=== PATIENT | female | born 1945 | race Caucasian/White ===

== ENCOUNTER → 2024-10-31 | Outpatient (CLI) | payer MEDICARE, MEDICAID, SELFPAY | END | disposition home or self-care (01) | PROVIDERS: PCP Family Medicine; Referring Provider Nurse Practitioner Family; Visit Provider Nurse Practitioner Family | DX: N39.0 Urinary tract infection, site not specified (principal) | CPT/HCPCS: 87086 ==

== ENCOUNTER 2025-06-29 03:23 | Emergency (ER) | payer OTHER, MEDICAID, SELFPAY ==
[2025-06-29 03:26] VITALS: BP 167/79; PULSE 86; RESP 18; TEMP 36.6; O2SAT 99
[2025-06-29 03:27] VITALS: BMI 21.5
--- NOTE | 2025-06-29 03:45 | PD.EDBACK ---
ED Back Injury Pain RME/HPI General Chief Complaint: Back Pain/Injury Stated Complaint: L MID BACK PAIN Time Seen by Provider: 06/29/25 03:56 Arrival date/time: 06/29/25 03:23 RME / HPI RME / HPI Narrative: See [facility] for Dr. Nova's HPI documentation. Related Data Previous Rx's ?Medication ?Instructions ?Recorded Hydrocodone/Acetaminophen * (NORCO 1 tab PO Q4H PRN PAIN #20 tabs 10/30/15 5/325 *) Phenazopyridine * (PYRIDIUM *) 100 mg PO TIDPC #9 tabs 10/30/15 Allergies Allergy/AdvReac Type Severity Reaction Status Date / Time Sulfa (Sulfonamide Allergy Intermediate Rash,MAKES Unverified 06/29/25 04:12 Antibiotics) SICK,THROAT SWELLS Review of Systems Review of Systems Systems Reviewed: All systems reviewed, normal except as documented Past Medical History Social History SMOKING STATUS: Never smoker ED Exam Narrative Physical exam: See [facility] for Dr. Nova's physical exam documentation. Course Quality Measures none Orders Category Date Time Status Saline [Insert IV] NOW Care 06/29/25 03:57 Active Straight [In and Out Catheter] X1 Care 06/29/25 03:[address] abdomen pelvis wo con Stat Exams 06/29/25 03:58 Ordered Bilirubin,Direct Stat Lab 06/29/25 03:59 Ordered CBC Stat Lab 06/29/25 03:59 Ordered CMP [Comprehensive Metabolic Panel] Stat Lab 06/29/25 03:59 Ordered Lipase Stat Lab 06/29/25 03:59 Ordered Magnesium Stat Lab 06/29/25 03:59 Ordered Urinalysis, C/S if Indicated Stat Lab 06/29/25 04:46 Received Morphine* Inj Med 06/29/25 03:57 Discontinued 2 mg IV X1 ONE Ondansetron Inj [Zofran Inj] Med 06/29/25 03:57 Discontinued 4 mg IVP X1 ONE Sodium Chloride 0.9% 1000 ml [Ns] 1,000 ml Med 06/29/25 03:57 Discontinued IV 999 mls/hr Vital Signs Vital signs: Vital Signs Temperature 97.8 F 06/29/25 03:26 Pulse Rate 86 06/29/25 03:26 Respiratory Rate 18 06/29/25 03:26 Blood Pressure 167/79 H 06/29/25 03:26 Pulse Oximetry (%) 99 06/29/25 03:26 Oxygen Delivery Method Room Air 06/29/25 03:26 Back Pain / Injury MDM Narrative MDM Narrative:: This section includes all my notes and documentations, including HPI, PE, and ED course. Daryl Nova MD HPI: 79yo female here with left flank pain for the last several hours. Patient was diagnosed with UTI did the before yesterday. Had several days of dysuria symptoms. Has been taking Cipro with no relief. No fever or chills. Has nausea. No vomiting. No other complaints. ROS: All negative except as documented in HPI. Physical Exam: General: Alert and oriented. Appears uncomfortable. Eyes: Conjunctivae and lids clear. ENT: No nasal congestion. Neck: Supple. Heart: RRR. Lungs: No respiratory distress. Good air movement. No rhonchi, wheezing, rales. Abdomen: Soft with no tenderness. Normal bowel sounds. No distension. No rebound or guarding. Back: Equivocal left CVA tenderness. Skin: Warm and dry. Neuro: Alert and oriented X 3. I ordered IV fluid, Zofran 4 mg IV, morphine 2 mg IV, and diagnostic tests. At 6 AM on 06/29/2025, the care of the patient was transferred to Dr. Baez. Daryl Nova MD Patient data External records reviewed:: [facility] previous records (Per chart review, patient has no previous ED visits or admissions to this facility.) Clinical information provided by:: patient Social determinants that could affect healthcare access:: none Patient has the following chronic illnesses:: none How is presenting disease/condition affected by chronic disease/condition?: no chronic disease Evaluation data The following diagnostics were reviewed and interpreted by me:: lab results and radiology exam(s) Lab and/or radiology exams considered but not ordered:: none Interpretation Summary: Complete diagnostic tests are pending. Medications / Prescriptions Medications or Prescriptions considered but not ordered:: none Medication administrations:: Medication Administration History Discontinued Medications Sodium Chloride (Ns) 1,000 mls @ 999 mls/hr IV .Q1H1M ONE Stop: 06/29/25 04:57 Last Admin: 06/29/25 04:14 Dose: 999 mls/hr Documented By: ALVIN Morphine Sulfate (Morphine Sulf Inj 4 Mg/Ml Vial) 2 mg IV X1 ONE Stop: 06/29/25 03:58 Last Admin: 06/29/25 04:13 Dose: 2 mg Documented By: ALVIN Ondansetron HCl (Ondansetron Inj 2 Mg/Ml Inj 2 Ml) 4 mg IVP X1 ONE; Protocol Stop: 06/29/25 03:58 Last Admin: 06/29/25 04:13 Dose: 4 mg Documented By: ALVIN I ordered IV fluid, Zofran 4 mg IV, morphine 2 mg IV. Consultations Consultation(s) initiated? (list below): No Diagnosis Differential diagnosis back pain/injury: lumbar radiculopathy, sciatica, strain of lumbar region, renal colic and pyelonephritis Most likely diagnosis given after review of the tests above:: Complete diagnostic tests are pending. Admission Indicated Admission indicated?: not indicated Explain why admission is indicated or not indicated:: Complete diagnostic tests are pending. Admission Request Was there a request for admission?: No Disposition Plan Disposition Plan: other (specify) (Signed out to Dr. Baez at 6 AM.) Discharge Plan Prescriptions/Referrals Prescriptions/Med Rec: No Action Hydrocodone/Acetaminophen * (NORCO 5/325 *) 1 TAB tablet 1 tab PO Q4H PRN (Reason: PAIN) Qty: 20 0RF Phenazopyridine * (PYRIDIUM *) 100 MG tablet 100 mg PO TIDPC Qty: 9 0RF Problem List Clinical Impression: Left flank pain Patient/Caregiver Discharge Instructions Print Language: Mohawk
--- NOTE | 2025-06-29 03:58 | XR_ITS ---
Examination: CT abdomen and pelvis without contrast. Coronal 3-D reconstructions. Sagittal 2-D reconstructions. Date and time of exam: June 29, 2025, 0457 hours, comparison January 21, 2013 INDICATIONS: Mid abdominal pain left flank pain beginning today CTDI: vol (mGy): 5.27 DLP: (mGycm): 260 Technique: Axial images of the abdomen have been obtained, 3 mm slice thickness Intravenous contrast material has not been administered. Low dose protocols were performed. One or more of the following dose reduction techniques were used; automated exposure control, adjustment of the mA and/or KV according to patient size, use of iterative reconstruction technique. Findings: Multiple liver cysts No gallstones Spleen is not enlarged No pancreatic or adrenal mass. No renal or ureteral calculi, no hydronephrosis Aorta normal size Abundant stool in the right colon Normal appendix No bowel obstruction Multiple calcified areas of uterine fibroid degeneration No bladder mass or bladder calculi Grade 1 anterolisthesis L4 on L5 IMPRESSION: No renal or ureteral calculi, no hydronephrosis No bladder mass or bladder calculi Normal appendix
[2025-06-29] MEDS: ONDANSETRON INJ 2 MG/ML INJ 2 ML 4 MG IVP (04:13)
[2025-06-29] MEDS: MORPHINE SULF INJ 4 MG/ML VIAL 2 MG IV (04:13)
[2025-06-29] MEDS: SODIUM CHLORIDE 0.9% 1000 ML 1,000 ML 999 ML IV (04:14)
[2025-06-29 04:51] LABS: Collection Type, Urine Clean Catch; Squamous Epithelial Cell,Urine 0 /hpf (0-5)
[2025-06-29 04:54] LABS: Bilirubin,Urine Negative (Negative); Blood,Urine Negative (Negative); Clarity,Urine Clear (Clear/Hazy); Color,Urine Colorless (Lt Yel-Yel); Culture Indicated,Urine Not Indicated; Glucose, Urine Negative (Negative); Ketones,Urine Negative (Negative); Leukocyte Esterase,Urine Negative (Negative); Nitrite,Urine Negative (Negative); PH,Urine 6.0 (5.0-7.0); Protein,Urine Negative (Neg - Trace); RBC,Urine 2 /hpf (0-3); Specific Gravity,Urine 1.011 (1.001-1.035); Urobilinogen,Urine Negative mg/dL (0.0-1.0); WBC,Urine 1 /hpf (0-5)
[2025-06-29 05:12] LABS: Basophils # (Auto) 0.1 Thou/mm3 (0.0-0.2); Basophils % (Auto) 1 % (0-2.5); Eosinophils # (Auto) 0.3 Thou/mm3 (0.0-0.5); Eosinophils % (Auto) 6 % (0-10); Hematocrit 39.8 % (36.0-46.0); Hemoglobin 12.6 g/dL (12.0-16.0); Immature Granulocytes Auto 0.01 Thou/mm3 (0.00-0.00); Lymphocytes # (Auto) 1.4 Thou/mm3 (1.0-4.8); Lymphocytes % (Auto) 27 % (10-50); Mean Corpuscular HGB Conc 31.7 g/dl (31.0-37.0); Mean Corpuscular Hemoglobin 28.5 pg (25.0-35.0); Mean Corpuscular Volume 90 fL (80-100); Monocytes # (Auto) 0.5 Thou/mm3 (0.0-0.8); Monocytes % (Auto) 10 % (0-12); Neutrophils # (Auto) 2.8 Thou/mm3 (1.8-7.7); Neutrophils % (Auto) 55 % (37-80); Nucleated Red Blood Cell # 0.00 Thou/mm3 (0.00-0.00); Nucleated Red Blood Cell % 0 /100 WBC (0); Platelet Count 210 Thou/mm3 (140-440); RDW Standard Deviation 43.5 fL (36.4-46.3); Red Blood Count 4.42 Miln/mm3 (4.00-5.20); White Blood Count 5.1 Thou/mm3 (3.6-11.0)
[2025-06-29 05:29] LABS: Alanine Aminotransferase 11 U/L (10-49); Albumin, Serum 4.2 gm/dL (3.4-4.8); Albumin/Globulin Ratio 2.3 (1.2-2.2); Alkaline Phosphatase 84 U/L (46-116); Anion Gap 9 (7-16); Aspartate Amino Transferase 25 U/L (0-34); BUN/Creatinine Ratio 11 Ratio (12-20); Bilirubin,Direct 0.2 mg/dL (0.0-0.3); Bilirubin,Total 0.6 mg/dL (0.3-1.2); Blood Urea Nitrogen 8 mg/dL (9-23); Calcium 8.7 mg/dL (8.3-10.6); Calcium (Corrected) 8.7 mg/dL (8.5-10.1); Carbon Dioxide 21.7 mMol/L (20.0-31.0); Chloride 110 mMol/L (98-107); Creatinine (Component) 0.7 mg/dL (0.6-1.3); Estimated Creatinine Clearance 51.5 mL/min (>60); Globulin 1.8 gm/dL (2.3-3.5); Glucose 89 mg/dL (74-106); Lipase 48 U/L (12-53); Magnesium 1.7 mg/dL (1.6-2.6); Osmolality,Calculated 278 (275-295); Potassium 4.7 mMol/L (3.4-5.1); Sodium 141 mMol/L (136-145); Total Protein 6.0 gm/dL (5.7-8.2); eGFR > 60 See Note
--- NOTE | 2025-06-29 05:51 | PRELIM_ITS ---
CT scan of the abdomen and pelvis without intravenous contrast (axial sections with sagittal and coronal reformats) June 29, 2025 0457 hours Clinical History: Left flank pain Comparison: No prior study is available for comparison. Findings: The lung bases are clear. There are multiple cysts in the liver, the largest measuring 1 cm in the right lobe of the liver. Extrarenal pelves are seen bilaterally. The gallbladder, pancreas, spleen and adrenals are unremarkable on this noncontrast study. No evidence of bowel obstruction. A moderate amount of fecal material is present in the colon. The appendix is within normal limits (caronal images 37- 57/131). There is no mesenteric or retroperitoneal adenopathy. The urinary bladder is unremarkable. There are multiple calcified uterine fibroids, the largest measuring 1 cm. There is no free fluid or free air. The osseous structures are unremarkable. Impression: No evidence of renal/ureteric calculus or hydroureteronephrosis. Other findings as described above. Report Electronically Signed By: Teresa Sifuentes 06/29/2025 5:51:08 AM [EST]
[2025-06-29 06:24] VITALS: BP 101/59; PULSE 65; RESP 18; TEMP 36.6; O2SAT 95
--- NOTE | 2025-06-29 07:10 | EDNOTE_ITS ---
Emergency Room Addendum Addendum Narrative: 0600: Care assumed from Dr. Nova, the previous shift emergency physician. Past medical, surgical, social and family history reviewed. Vitals and home medications reviewed. I will assume the care of the patient at this time, pending labs, imaging, and final disposition. Please refer to the emergency department record for history and examination from initial visit.?The following addendum documentation note is intended to reflect any pending information, findings, or radiology results not included in the patient?s initial chart. I reviewed labs and imaging. CT abdomen pelvis wo contrast with no acute findings. CBC and CMP with no acute findings. UA negative for infection. Patient remains clinically stable throughout the emergency department visit. We reviewed all the results, analysis, and treatment plans. Patient is amenable to discharge. Strict return precautions were outlined. Diagnosis: Left flank pain RADIOLOGY ____ Ordering Physician: Daryl Nova MD Date of Service: 06/29/25 Procedure(s): CT abdomen pelvis wo con Accession Number(s): [id number] cc: Daryl Nova MD; Juancarlos Almodovar MD; Domenico Neely MD~ Examination: CT abdomen and pelvis without contrast. Coronal 3-D reconstructions. Sagittal 2-D reconstructions. Date and time of exam: June 29, 2025, 0457 hours, comparison January 21, 2013 INDICATIONS: Mid abdominal pain left flank pain beginning today CTDI: vol (mGy): 5.27 DLP: (mGycm): 260 Technique: Axial images of the abdomen have been obtained, 3 mm slice thickness Intravenous contrast material has not been administered. Low dose protocols were performed. One or more of the following dose reduction techniques were used; automated exposure control, adjustment of the mA and/or KV according to patient size, use of iterative reconstruction technique. Findings: Multiple liver cysts No gallstones Spleen is not enlarged No pancreatic or adrenal mass. No renal or ureteral calculi, no hydronephrosis Aorta normal size Abundant stool in the right colon Normal appendix No bowel obstruction Multiple calcified areas of uterine fibroid degeneration No bladder mass or bladder calculi Grade 1 anterolisthesis L4 on L5 IMPRESSION: No renal or ureteral calculi, no hydronephrosis No bladder mass or bladder calculi Normal appendix Dictated By: Juancarlos Almodovar MD Signed By: <Electronically signed by Juancarlos Almodovar MD in [place]>06/29/25 0721
[2025-06-29] MEDS: HYDROcodone/APAP 5/325 TABLET 1 TAB PO (07:21)
[2025-06-29 07:26] VITALS: BP 117/51; PULSE 60; RESP 14; TEMP 36.4; O2SAT 96
--- NOTE | 2025-06-29 07:52 | CHAP ---
Patient expressed gratitude for visit and prayer.
== END 2025-06-29 08:22 | disposition home or self-care (01) ==
PROVIDERS: Emergency Medicine; Emergency Provider Emergency Medicine; PCP Family Medicine
DX: N39.0 Urinary tract infection, site not specified (principal)
CPT/HCPCS: 36415; 74176; 80053; 81001; 82248; 83690; 83735; 85025; 96361; 96374; 99283; J2270; J2405; J7030; A9270